=== PATIENT | male | born 1975 | race Caucasian/White ===

== ENCOUNTER → 2021-07-29 | Outpatient (CLI) | payer BC | LOC: EMI 07-25 11:00 | DX: G61.81 Chronic inflammatory demyelinating polyneuritis (principal); S09.90XA Unspecified injury of head, initial encounter; R25.1 Tremor, unspecified; G31.9 Degenerative disease of nervous system, unspecified | CPT/HCPCS: 70553; A9577 ==

== ENCOUNTER → 2021-08-19 | Day surgery (SDC) | payer BC ==
[2021-08-19 10:28] LABS: RBC (AUTOMATED) 100 10^6 (0); WBC (AUTOMATED 2 10^3 (0-5)
[2021-08-19 10:57] LABS: GLUCOSE,CSF 66 mg/dL (50-80)
[2021-08-19 11:19] LABS: TOTAL PROTEIN,CSF 279 mg/dL (20-45)
[2021-08-21 16:13] LABS: MYELIN BASIC PROTEIN, CSF 2.6 ng/mL (0.0-4.7)
== END | disposition left against medical advice (07) ==
LOC: OR 07:30 → EDSTATUS 07:30 → OR 08:21 → RAD 08:30
PROVIDERS: Psychiatry & Neurology Neurology
DX: G61.81 Chronic inflammatory demyelinating polyneuritis (principal); Z53.29 Procedure and treatment not carried out because of patient's decision for other reasons
CPT/HCPCS: 36415; 82040; 82784; 82945; 83873; 83916; 84157; 87015; 87070; 87116; 87205; 87210; 87252; 89051